=== PATIENT | female | born 1975 | race Caucasian/White ===

== ENCOUNTER 2019-11-30 19:00 | Inpatient (IN) | payer BC, OTHER ==
[2019-11-30] MEDS ORDERED: Loperamide HCl 2 MG CAP PO PRN (21:50)
[2019-11-30] MEDS ORDERED: Dextrose 5% in Water 1,000 ML IV PRN (21:59)
[2019-11-30] MEDS ORDERED: HumaLOG 300 UNITS/3 ML VIAL SC PRN (21:59)
[2019-11-30] MEDS ORDERED: Dextrose 50% Abboject 50 ML SYRINGE SLOW IVP PRN (21:59)
[2019-12-01] MEDS ORDERED: hydrALAZINE 25 MG TAB PO SCH (01:30)
[2019-12-01] MEDS: Atorvastatin Calcium 40 MG TAB PO SCH (09:13)
[2019-12-01] MEDS: Clopidogrel Bisulfate 75 MG TAB PO SCH (09:14)
[2019-12-01] MEDS: Lisinopril 20 MG TAB PO SCH (09:14)
[2019-12-01] MEDS: hydrALAZINE 25 MG TAB PO SCH ×3 (09:17→21:35)
[2019-12-01] MEDS: Cholecalciferol 1,000 UNITS (25 MCG) TAB PO SCH (09:17)
[2019-12-01] MEDS: Nystatin Powder 15 GM BOT TOP SCH ×2 (09:18→22:16)
[2019-12-01] MEDS: Furosemide 20 MG TAB PO SCH (09:19)
[2019-12-01] MEDS: HumaLOG 300 UNITS/3 ML VIAL SC PRN (18:23)
[2019-12-02] MEDS: Clopidogrel Bisulfate 75 MG TAB PO SCH (08:51)
[2019-12-02] MEDS: Furosemide 20 MG TAB PO SCH (08:51)
[2019-12-02] MEDS: Cholecalciferol 1,000 UNITS (25 MCG) TAB PO SCH (08:51)
[2019-12-02] MEDS: Atorvastatin Calcium 40 MG TAB PO SCH (08:51)
[2019-12-02] MEDS: Lisinopril 20 MG TAB PO SCH (08:52)
[2019-12-02] MEDS: Nystatin Powder 15 GM BOT TOP SCH ×3 (08:54→21:52)
[2019-12-02] MEDS: hydrALAZINE 25 MG TAB PO SCH ×3 (11:19→21:51)
[2019-12-02] MEDS ORDERED: Nystatin Powder 15 GM BOT TOP SCH ×2 (11:45)
[2019-12-02] MEDS ORDERED: Senokot S 8.6-50 MG TAB PO PRN (17:10)
--- NOTE | 2019-12-02 17:48 | HP ---
CHIEF COMPLAINT: Debilitation, generalized weakness. HISTORY OF PRESENT ILLNESS: The patient is a 44-year-old extremely pleasant white female with a very complicated medical history with chronic medical conditions, who had just spent about 3 weeks at [facility] in [place]. She was admitted on 11/13/2019 with significant CHF exacerbation/nephrotic syndrome with volume overload and anasarca. Her principal diagnosis was nephrotic syndrome, for which she had anasarca associated with disorder of the kidney including renal failure. She developed a hydropneumothorax. Apparently, she had a thoracentesis and approximately a L was diuresed and she became hypotensive requiring extended ICU stay. In addition, she had complications of hypertensive crisis and shock due to her hypotension and developed acute respiratory failure with hypoxia and hypercapnia. After her ICU stay, she was extremely debilitated and weak, had continued acute urinary retention, was unable to ambulate. She also has some skin breakdown requiring airflow mattress and due to her severe deconditioning, she was deemed appropriate for half-way and was transferred to [facility] on 11/30/2019 for physical therapy and occupational therapy and management of her chronic medical conditions. PAST MEDICAL HISTORY: Significant for, 1. Type 2 diabetes mellitus, poorly controlled, off insulin. 2. Status post CVA. The patient described it as a stroke from her diabetes. 3. Congestive heart failure. 4. Hypertension. 5. History of poor compliance with her recent hospitalization and leaving hospital AMA. 6. Hyperlipidemia. 7. Mental deficits secondary to her history of CVA. MEDICATIONS: Include, 1. Furosemide 20 mg daily. 2. Hydralazine 100 mg p.o. t.i.d. 3. Isosorbide mononitrate 60 mg daily. 4. Loperamide as needed for diarrhea. 5. Nystatin powder p.r.n. 6. Seroquel 25 mg p.o. b.i.d. 7. Atorvastatin 80 mg daily. 8. Plavix 75 mg daily. 9. Lisinopril 20 mg daily. Diet is a renal diabetic and heart healthy diet. SOCIAL HISTORY: The patient apparently lives with her and children in the [facility]. She is usually independent with all activities of daily living prior to her recent hospitalization. REVIEW OF SYSTEMS: During her hospitalization, the patient does report constipation followed by diarrhea. She also reports urinary retention issue for prior occurrence of a Napier catheter. The patient says her appetite has been poor during her hospitalization. She does report some sadness at times because she is not able to spend time with her family and her , but denies depression. The patient denies insomnia. She continues to have some shortness of breath, which has been improving during her hospitalization. The patient denies any fevers or chills. No emesis reported. The patient is unsure if she had any recent significant weight loss or weight gain. The patient denies rashes. The patient denies any significant pain of her joints. PHYSICAL EXAMINATION: GENERAL: Ill-appearing white female, appears older than stated age, in no obvious distress on 2 L of oxygen. VITAL SIGNS: O2 saturation was 92% on 4 L of oxygen, blood pressure was 148/68, respiratory rate was 16, pulse was 82. HEENT: Oropharynx, mucous membranes are moist. Extraocular movements are intact. Pupils are equal, round, and reactive to light and accommodation. NECK: Supple. No masses palpated. CHEST: Decreased breath sounds in the bases bilaterally. HEART: With a regular rate and rhythm. ABDOMEN: Soft, nontender, nondistended. No masses are palpated. EXTREMITIES: Showed pale extremities. No cyanosis, clubbing, or edema. ASSESSMENT AND PLAN: 1. Deconditioning and debilitation. The patient is currently nonambulatory. She is extremely weak. We will order physical therapy and occupational therapy. 2. Anasarca secondary to nephrotic syndrome. The patient will continue on her Lasix 20 mg daily. She does have some dependent edema on her buttocks. Hopefully, this will improve. We will continue airflow mattress to help prevent any skin breakdown. 3. Diabetes mellitus. The patient will be placed on Accu-Cheks q.a.c. and at bedtime. Her blood sugars look good. May discontinue and do fasting blood sugars. 4. Chronic renal disease, stage 4 due to diabetes. We will continue to follow this. 5. Acute urinary retention. We will try to consider a PureWick. If she is able to start urinating due to her deconditioning, we will attempt to discontinue the Napier catheter. 6. Hypertension, presently controlled. Continue patient on her current medications. 7. Code status. The patient wishes to be full code. 8. Disposition: The patient will have a long stay likely in skilled for several weeks due to her severe deconditioning and inability to ambulate. Her goal at discharge is to be discharged to home. Expected hospitalization will be at least 3 to 4 weeks. 9. DVT prophylaxis. The patient is at high risk for DVT. I believe she may have been placed on a blood thinner during her hospitalization. We will evaluate that. If not on a blood thinner, may consider her back on Lovenox daily. Job ID: [id number]
[2019-12-02 18:05] LABS: Anion Gap 16 mmol/L (10-20); BUN (Urea Nitrogen) 59 mg/dL (7.0-18.7); Calc. Creatinine Clearance 21 mL/min (70-130); Calcium 8.4 mg/dL (7.8-10.44); Carbon Dioxide 27 mmol/L (22-29); Chloride 107 mmol/L (98-107); Estimated GFR-MDRD 16; Glucose 126 mg/dL (70-105); Potassium 5.4 mmol/L (3.5-5.1); Sodium 145 mmol/L (136-145)
[2019-12-02 18:08] LABS: #Basophils 0.1 thou/uL (0.0-0.2); #Eosinphils 0.2 thou/uL (0.0-0.7); #Lymphocytes 1.4 thou/uL (1.20-3.40); #Monocytes 0.3 thou/uL (0.11-0.59); #Neutrophils 3.6 thou/uL (1.40-6.50); %Basophils 0.9 % (0.0-1.0); %Eosinophils 2.9 % (0.0-10.0); %Lymphocytes 25.1 % (21.0-51.0); %Monocytes 5.5 % (0.0-10.0); %Neutrophils 65.6 % (42.0-75.0); Anisocytosis SLIGHT = 6-15 cells (100X) (0-5/hpf); Elliptocytes SLIGHT = 2-5 cells (100X) (0-1/hpf); Hemoglobin 9.1 g/dL (12.0-16.0); MDiff Complete? YES; Mean Corpuscular HGB CONC 28.8 g/dL (32.0-36.0); Mean Corpuscular Hemoglobin 23.9 pg (27.0-31.0); Mean Platelet Volume 6.2 fL (7.4-10.4); Platelet Count 248 thou/uL (130-400); Poikilocytosis SLIGHT = 6-15 cells (100X) (0-5/hpf); RBC Distribution Width 15.7 % (11.5-14.5); Red Blood Cell (RBC) Count 3.81 mill/uL (4.20-5.40); Tear Drops SLIGHT = 2-5 cells (100X) (0-1/hpf); White Blood Cell (WBC) Count 5.5 thou/uL (4.8-10.8)
[2019-12-02] MEDS: Famotidine 20 MG TAB PO SCH (21:50)
[2019-12-03] MEDS: hydrALAZINE 25 MG TAB PO SCH ×3 (08:12→21:26)
[2019-12-03] MEDS: Enoxaparin Sodium 30 MG/0.3 ML SYRINGE SC SCH (08:12)
[2019-12-03] MEDS: Atorvastatin Calcium 40 MG TAB PO SCH ×2 (08:12→08:13)
[2019-12-03] MEDS: Cholecalciferol 1,000 UNITS (25 MCG) TAB PO SCH (08:13)
[2019-12-03] MEDS: Clopidogrel Bisulfate 75 MG TAB PO SCH (08:13)
[2019-12-03] MEDS: Furosemide 20 MG TAB PO SCH (08:14)
[2019-12-03] MEDS: Lisinopril 20 MG TAB PO SCH (08:14)
[2019-12-03] MEDS: Nystatin Powder 15 GM BOT TOP SCH ×2 (08:15→21:00)
[2019-12-03] MEDS: Famotidine 20 MG TAB PO SCH ×2 (08:16→21:26)
[2019-12-03] MEDS: HumaLOG 300 UNITS/3 ML VIAL SC PRN (12:26)
[2019-12-03 12:29] LABS: SARS-CoV-2 MS2 Positive; SARS-CoV-2 N Gene Negative; SARS-CoV-2 S Gene Negative; SARS-CoV-2 by NAA Not Detected (NotDetected); SARS-CoV-2 orf1ab Negative
[2019-12-03] MEDS: Acetaminophen 325 MG TAB PO PRN (18:31)
[2019-12-04 05:51] LABS: Hemoglobin 8.8 g/dL (12.0-16.0); Platelet Count 221 thou/uL (130-400)
[2019-12-04] MEDS: hydrALAZINE 25 MG TAB PO SCH ×3 (08:41→20:06)
[2019-12-04] MEDS: Famotidine 20 MG TAB PO SCH (08:41)
[2019-12-04] MEDS: Cholecalciferol 1,000 UNITS (25 MCG) TAB PO SCH (08:41)
[2019-12-04] MEDS: Lisinopril 20 MG TAB PO SCH (08:42)
[2019-12-04] MEDS: Atorvastatin Calcium 40 MG TAB PO SCH (08:43)
[2019-12-04] MEDS: Furosemide 20 MG TAB PO SCH (08:43)
[2019-12-04] MEDS: Clopidogrel Bisulfate 75 MG TAB PO SCH (08:44)
[2019-12-04] MEDS: Enoxaparin Sodium 30 MG/0.3 ML SYRINGE SC SCH (08:44)
[2019-12-04] MEDS: Nystatin Powder 15 GM BOT TOP SCH ×2 (08:47→20:07)
[2019-12-05] MEDS: Acetaminophen 325 MG TAB PO PRN (04:52)
[2019-12-05 05:19] LABS: ALT (SGPT) 10 U/L (8-55); AST (SGOT) 8 U/L (5-34); Albumin 2.9 g/dL (3.5-5.0); Alkaline Phosphatase 151 U/L (40-110); Anion Gap 15 mmol/L (10-20); BUN (Urea Nitrogen) 56 mg/dL (7.0-18.7); Bilirubin, Total Less than 0.2 mg/dL (0.2-1.2); Calc. Creatinine Clearance 24 mL/min (70-130); Calcium 8.6 mg/dL (7.8-10.44); Carbon Dioxide 25 mmol/L (22-29); Chloride 110 mmol/L (98-107); Estimated GFR-MDRD 18; Globulin 2.5 g/dL (2.4-3.5); Glucose 146 mg/dL (70-105); Potassium 5.2 mmol/L (3.5-5.1); Protein, Total 5.4 g/dL (6.0-8.3); Sodium 145 mmol/L (136-145)
[2019-12-05 05:29] LABS: #Basophils 0.1 thou/uL (0.0-0.2); #Eosinphils 0.2 thou/uL (0.0-0.7); #Lymphocytes 1.2 thou/uL (1.20-3.40); #Monocytes 0.3 thou/uL (0.11-0.59); #Neutrophils 2.9 thou/uL (1.40-6.50); %Basophils 2.1 % (0.0-1.0); %Eosinophils 3.5 % (0.0-10.0); %Lymphocytes 25.1 % (21.0-51.0); %Monocytes 6.5 % (0.0-10.0); %Neutrophils 62.9 % (42.0-75.0); Hemoglobin 8.7 g/dL (12.0-16.0); Mean Corpuscular HGB CONC 29.5 g/dL (32.0-36.0); Mean Corpuscular Hemoglobin 24.2 pg (27.0-31.0); Mean Corpuscular Volume 81.9 fL (78.0-98.0); Mean Platelet Volume 7.5 fL (7.4-10.4); Platelet Count 230 thou/uL (130-400); RBC Distribution Width 16.1 % (11.5-14.5); White Blood Cell (WBC) Count 4.6 thou/uL (4.8-10.8)
[2019-12-05 05:43] LABS: Anisocytosis SLIGHT = 6-15 cells (100X) (0-5/hpf); Hypochromia SLIGHT = 6-15 cells (100X) (0-5/hpf); Ovalocytes SLIGHT = 2-5 cells (100X) (0-1/hpf); Platelet Morphology Comment Appears Adequate
[2019-12-05] MEDS: Enoxaparin Sodium 30 MG/0.3 ML SYRINGE SC SCH (09:01)
[2019-12-05] MEDS: hydrALAZINE 25 MG TAB PO SCH ×3 (09:02→21:34)
[2019-12-05] MEDS: Furosemide 20 MG TAB PO SCH (09:02)
[2019-12-05] MEDS: Famotidine 20 MG TAB PO SCH (09:03)
[2019-12-05] MEDS: Cholecalciferol 1,000 UNITS (25 MCG) TAB PO SCH (09:04)
[2019-12-05] MEDS: Nystatin Powder 15 GM BOT TOP SCH ×2 (09:06→21:38)
[2019-12-05] MEDS: Clopidogrel Bisulfate 75 MG TAB PO SCH (09:06)
[2019-12-05] MEDS: Lisinopril 20 MG TAB PO SCH (09:07)
[2019-12-05] MEDS: HumaLOG 300 UNITS/3 ML VIAL SC PRN ×2 (12:08→17:02)
[2019-12-06 05:40] LABS: Hemoglobin 8.5 g/dL (12.0-16.0); Platelet Count 234 thou/uL (130-400)
[2019-12-06] MEDS: Enoxaparin Sodium 30 MG/0.3 ML SYRINGE SC SCH (08:41)
[2019-12-06] MEDS: Atorvastatin Calcium 40 MG TAB PO SCH (08:42)
[2019-12-06] MEDS: Furosemide 20 MG TAB PO SCH (08:42)
[2019-12-06] MEDS: Cholecalciferol 1,000 UNITS (25 MCG) TAB PO SCH (08:42)
[2019-12-06] MEDS: Famotidine 20 MG TAB PO SCH (08:42)
[2019-12-06] MEDS: hydrALAZINE 25 MG TAB PO SCH ×3 (08:43→20:38)
[2019-12-06] MEDS: Clopidogrel Bisulfate 75 MG TAB PO SCH (08:43)
[2019-12-06] MEDS: Lisinopril 20 MG TAB PO SCH (08:43)
[2019-12-06] MEDS: Nystatin Powder 15 GM BOT TOP SCH ×2 (08:44→23:43)
[2019-12-06] MEDS: Acetaminophen 325 MG TAB PO PRN (23:36)
[2019-12-07] MEDS: Lisinopril 20 MG TAB PO SCH (04:27)
[2019-12-07] MEDS: hydrALAZINE 25 MG TAB PO SCH ×3 (04:28→21:03)
[2019-12-07] MEDS: Atorvastatin Calcium 40 MG TAB PO SCH (08:58)
[2019-12-07] MEDS: Famotidine 20 MG TAB PO SCH (08:58)
[2019-12-07] MEDS: Furosemide 20 MG TAB PO SCH (08:58)
[2019-12-07] MEDS: Clopidogrel Bisulfate 75 MG TAB PO SCH (08:58)
[2019-12-07] MEDS: Cholecalciferol 1,000 UNITS (25 MCG) TAB PO SCH (08:59)
[2019-12-07] MEDS: Enoxaparin Sodium 30 MG/0.3 ML SYRINGE SC SCH (08:59)
[2019-12-07] MEDS: Nystatin Powder 15 GM BOT TOP SCH ×2 (09:00→21:03)
[2019-12-07] MEDS: HumaLOG 300 UNITS/3 ML VIAL SC PRN (17:48)
[2019-12-07] MEDS: Acetaminophen 325 MG TAB PO PRN (19:38)
[2019-12-08 05:21] LABS: Hemoglobin 8.8 g/dL (12.0-16.0); Platelet Count 224 thou/uL (130-400)
[2019-12-08] MEDS ORDERED: Milk Of Magnesia 30 ML UDCUP PO PRN (09:11)
[2019-12-08] MEDS ORDERED: Bisacodyl 10 MG SUPP PR PRN (09:12)
[2019-12-08 09:23] LABS: Anion Gap 16 mmol/L (10-20); BUN (Urea Nitrogen) 57 mg/dL (7.0-18.7); Calc. Creatinine Clearance 25 mL/min (70-130); Calcium 8.9 mg/dL (7.8-10.44); Carbon Dioxide 25 mmol/L (22-29); Chloride 109 mmol/L (98-107); Estimated GFR-MDRD 18; Glucose 167 mg/dL (70-105); Potassium 5.2 mmol/L (3.5-5.1); Sodium 145 mmol/L (136-145)
[2019-12-08] MEDS: Enoxaparin Sodium 30 MG/0.3 ML SYRINGE SC SCH (09:35)
[2019-12-08] MEDS: Famotidine 20 MG TAB PO SCH (09:35)
[2019-12-08] MEDS: Cholecalciferol 1,000 UNITS (25 MCG) TAB PO SCH (09:36)
[2019-12-08] MEDS: hydrALAZINE 25 MG TAB PO SCH ×3 (09:36→21:06)
[2019-12-08] MEDS: Lisinopril 20 MG TAB PO SCH (09:37)
[2019-12-08] MEDS: Atorvastatin Calcium 40 MG TAB PO SCH (09:38)
[2019-12-08] MEDS: Furosemide 20 MG TAB PO SCH (09:38)
[2019-12-08] MEDS: Clopidogrel Bisulfate 75 MG TAB PO SCH (09:38)
[2019-12-08] MEDS: Nystatin Powder 15 GM BOT TOP SCH ×2 (10:00→21:08)
[2019-12-08] MEDS: HumaLOG 300 UNITS/3 ML VIAL SC PRN (13:19)
[2019-12-08] MEDS ORDERED: Furosemide 20 MG TAB PO SCH (16:00)
[2019-12-08] MEDS: Carvedilol 3.125 MG TAB PO SCH (16:05)
[2019-12-09] MEDS: Enoxaparin Sodium 30 MG/0.3 ML SYRINGE SC SCH (09:00)
[2019-12-09] MEDS ORDERED: Furosemide 40 MG TAB PO SCH (09:00)
[2019-12-09] MEDS: Clopidogrel Bisulfate 75 MG TAB PO SCH (09:01)
[2019-12-09] MEDS: Carvedilol 3.125 MG TAB PO SCH ×2 (09:01→16:17)
[2019-12-09] MEDS: Lisinopril 20 MG TAB PO SCH (09:01)
[2019-12-09] MEDS: Cholecalciferol 1,000 UNITS (25 MCG) TAB PO SCH (09:01)
[2019-12-09] MEDS: Famotidine 20 MG TAB PO SCH (09:02)
[2019-12-09] MEDS: hydrALAZINE 25 MG TAB PO SCH ×3 (09:02→20:59)
[2019-12-09] MEDS: Atorvastatin Calcium 40 MG TAB PO SCH (09:02)
[2019-12-09] MEDS: Nystatin Powder 15 GM BOT TOP SCH ×2 (09:03→21:03)
[2019-12-09] MEDS: HumaLOG 300 UNITS/3 ML VIAL SC PRN (12:46)
[2019-12-10 05:28] LABS: Anion Gap 13 mmol/L (10-20); BUN (Urea Nitrogen) 55 mg/dL (7.0-18.7); Calc. Creatinine Clearance 26 mL/min (70-130); Calcium 8.7 mg/dL (7.8-10.44); Carbon Dioxide 27 mmol/L (22-29); Chloride 109 mmol/L (98-107); Estimated GFR-MDRD 18; Glucose 143 mg/dL (70-105); Potassium 5.1 mmol/L (3.5-5.1); Sodium 144 mmol/L (136-145)
[2019-12-10 05:30] LABS: Hemoglobin 9.1 g/dL (12.0-16.0); Platelet Count 233 thou/uL (130-400)
--- NOTE | 2019-12-10 07:14 | RAD ---
PORTABLE CHEST: Date: 12/10/2019 An AP portable film at 0632 hours is compared with the 07/25/2018 study done at [facility]. Diffuse pulmonary edema and bilateral pleural effusions are present. The heart does not seem necessar bertrand enlarged. The lung apices are relatively clear. IMPRESSION: Diffuse pulmonary edema and moderate sized pleural effusions. POS: HOME
[2019-12-10] MEDS: Enoxaparin Sodium 30 MG/0.3 ML SYRINGE SC SCH (08:44)
[2019-12-10] MEDS: Cholecalciferol 1,000 UNITS (25 MCG) TAB PO SCH (08:44)
[2019-12-10] MEDS: Famotidine 20 MG TAB PO SCH (08:45)
[2019-12-10] MEDS: Atorvastatin Calcium 40 MG TAB PO SCH (08:46)
[2019-12-10] MEDS: Clopidogrel Bisulfate 75 MG TAB PO SCH (08:46)
[2019-12-10] MEDS: Nystatin Powder 15 GM BOT TOP SCH ×2 (08:46→20:48)
[2019-12-10] MEDS: Furosemide 20 MG TAB PO SCH (09:18)
[2019-12-10] MEDS: Carvedilol 3.125 MG TAB PO SCH ×2 (09:19→16:25)
[2019-12-10] MEDS: Lisinopril 20 MG TAB PO SCH (09:19)
[2019-12-10] MEDS: hydrALAZINE 25 MG TAB PO SCH ×3 (09:19→20:31)
[2019-12-10 10:10] LABS: Bilirubin Negative (Negative); Blood, Urine Trace (Negative); Clarity Cloudy (Clear); Glucose, Urine (Dipstick) Negative (Negative); Ketone, Urine Negative (Negative); Leukocyte Moderate (Negative); Nitrite Negative (Negative); Protein, Urine (Dipstick) > or equal to 300 mg/dL (Neg-Trace); Urobilinogen 0.2 mg/dL (Less than 2); pH, Urine 5.5 (5.0-9.0)
[2019-12-10 10:20] LABS: Bacteria/HPF 4+ HPF (None Seen); Transitional Epithelial 0-3 HPF (None Seen); WBC/HPF Greater Than 50 HPF (0-3)
[2019-12-10] MEDS: HumaLOG 300 UNITS/3 ML VIAL SC PRN ×2 (13:08→17:48)
[2019-12-10] MEDS ORDERED: Furosemide 20 MG TAB PO SCH (19:45)
[2019-12-10 20:29] LABS: CKMB 2.6 ng/mL (0-6.6)
[2019-12-11 05:38] LABS: ALT (SGPT) 16 U/L (8-55); AST (SGOT) 10 U/L (5-34); Albumin 2.8 g/dL (3.5-5.0); Alkaline Phosphatase 170 U/L (40-110); Anion Gap 12 mmol/L (10-20); BUN (Urea Nitrogen) 57 mg/dL (7.0-18.7); Bilirubin, Total Less than 0.2 mg/dL (0.2-1.2); Calc. Creatinine Clearance 25 mL/min (70-130); Calcium 8.6 mg/dL (7.8-10.44); Carbon Dioxide 29 mmol/L (22-29); Chloride 109 mmol/L (98-107); Estimated GFR-MDRD 17; Globulin 2.6 g/dL (2.4-3.5); Glucose 145 mg/dL (70-105); Protein, Total 5.4 g/dL (6.0-8.3); Sodium 145 mmol/L (136-145)
[2019-12-11 05:39] LABS: CKMB 2.5 ng/mL (0-6.6); Troponin I 0.096 ng/mL (< 0.028)
[2019-12-11] MEDS: Furosemide 20 MG TAB PO SCH (08:44)
[2019-12-11] MEDS: Lisinopril 20 MG TAB PO SCH (08:44)
[2019-12-11] MEDS: Famotidine 20 MG TAB PO SCH (08:44)
[2019-12-11] MEDS: hydrALAZINE 25 MG TAB PO SCH ×3 (08:45→20:30)
[2019-12-11] MEDS: Clopidogrel Bisulfate 75 MG TAB PO SCH (08:45)
[2019-12-11] MEDS: Cholecalciferol 1,000 UNITS (25 MCG) TAB PO SCH (08:46)
[2019-12-11] MEDS: Atorvastatin Calcium 40 MG TAB PO SCH (08:47)
[2019-12-11] MEDS: Carvedilol 3.125 MG TAB PO SCH ×2 (08:48→16:35)
[2019-12-11] MEDS: Enoxaparin Sodium 30 MG/0.3 ML SYRINGE SC SCH (08:48)
[2019-12-11] MEDS: Nystatin Powder 15 GM BOT TOP SCH ×2 (09:01→20:31)
[2019-12-11] MEDS: HumaLOG 300 UNITS/3 ML VIAL SC PRN (12:50)
[2019-12-11] MEDS ORDERED: Furosemide 20 MG TAB PO SCH (15:00)
[2019-12-12 05:27] LABS: Hemoglobin 8.8 g/dL (12.0-16.0); Platelet Count 216 thou/uL (130-400)
[2019-12-12] MEDS: Enoxaparin Sodium 30 MG/0.3 ML SYRINGE SC SCH (08:36)
[2019-12-12] MEDS: hydrALAZINE 25 MG TAB PO SCH ×3 (08:37→21:11)
[2019-12-12] MEDS: Famotidine 20 MG TAB PO SCH (08:38)
[2019-12-12] MEDS: Atorvastatin Calcium 40 MG TAB PO SCH (08:39)
[2019-12-12] MEDS: Furosemide 40 MG TAB PO SCH (08:39)
[2019-12-12] MEDS: Cholecalciferol 1,000 UNITS (25 MCG) TAB PO SCH (08:39)
[2019-12-12] MEDS: Clopidogrel Bisulfate 75 MG TAB PO SCH (08:39)
[2019-12-12] MEDS: Carvedilol 3.125 MG TAB PO SCH ×2 (08:40→17:34)
[2019-12-12] MEDS: Lisinopril 20 MG TAB PO SCH (08:41)
[2019-12-12] MEDS: Nystatin Powder 15 GM BOT TOP SCH ×2 (08:44→21:12)
[2019-12-13] MEDS: Enoxaparin Sodium 30 MG/0.3 ML SYRINGE SC SCH (09:21)
[2019-12-13] MEDS: Atorvastatin Calcium 40 MG TAB PO SCH (09:21)
[2019-12-13] MEDS: Lisinopril 20 MG TAB PO SCH (09:22)
[2019-12-13] MEDS: Clopidogrel Bisulfate 75 MG TAB PO SCH (09:22)
[2019-12-13] MEDS: Furosemide 40 MG TAB PO SCH (09:23)
[2019-12-13] MEDS: Carvedilol 3.125 MG TAB PO SCH ×2 (09:23→16:45)
[2019-12-13] MEDS: Famotidine 20 MG TAB PO SCH (09:23)
[2019-12-13] MEDS: hydrALAZINE 25 MG TAB PO SCH ×3 (09:23→21:46)
[2019-12-13] MEDS: Cholecalciferol 1,000 UNITS (25 MCG) TAB PO SCH (09:23)
[2019-12-13] MEDS: Nystatin Powder 15 GM BOT TOP SCH ×2 (09:25→21:47)
[2019-12-13] MEDS: Sulfameth/Trimethoprim DS 800-160mg TAB PO SCH (21:47)
[2019-12-14 05:09] LABS: Hemoglobin 8.4 g/dL (12.0-16.0); Platelet Count 212 thou/uL (130-400)
[2019-12-14] MEDS: Enoxaparin Sodium 30 MG/0.3 ML SYRINGE SC SCH (08:42)
[2019-12-14] MEDS: Atorvastatin Calcium 40 MG TAB PO SCH (08:45)
[2019-12-14] MEDS: Cholecalciferol 1,000 UNITS (25 MCG) TAB PO SCH (08:46)
[2019-12-14] MEDS: Sulfameth/Trimethoprim DS 800-160mg TAB PO SCH ×2 (08:46→20:28)
[2019-12-14] MEDS: Famotidine 20 MG TAB PO SCH (08:47)
[2019-12-14] MEDS: Carvedilol 3.125 MG TAB PO SCH ×2 (08:47→15:27)
[2019-12-14] MEDS: Furosemide 40 MG TAB PO SCH (08:47)
[2019-12-14] MEDS: Lisinopril 20 MG TAB PO SCH (08:47)
[2019-12-14] MEDS: hydrALAZINE 25 MG TAB PO SCH ×3 (08:48→20:28)
[2019-12-14] MEDS: Clopidogrel Bisulfate 75 MG TAB PO SCH (08:48)
[2019-12-14] MEDS: Nystatin Powder 15 GM BOT TOP SCH ×2 (08:49→20:30)
[2019-12-15] MEDS: Nystatin Powder 15 GM BOT TOP SCH ×2 (09:00→21:07)
[2019-12-15] MEDS: Carvedilol 3.125 MG TAB PO SCH ×2 (09:24→17:18)
[2019-12-15] MEDS: hydrALAZINE 25 MG TAB PO SCH ×3 (09:24→21:07)
[2019-12-15] MEDS: Lisinopril 20 MG TAB PO SCH (09:25)
[2019-12-15] MEDS: Furosemide 40 MG TAB PO SCH (09:31)
[2019-12-15] MEDS: Enoxaparin Sodium 30 MG/0.3 ML SYRINGE SC SCH (09:31)
[2019-12-15] MEDS: Atorvastatin Calcium 40 MG TAB PO SCH (13:13)
[2019-12-15] MEDS: Famotidine 20 MG TAB PO SCH (13:13)
[2019-12-15] MEDS: Sulfameth/Trimethoprim DS 800-160mg TAB PO SCH ×2 (13:13→21:07)
[2019-12-15] MEDS: Clopidogrel Bisulfate 75 MG TAB PO SCH (13:13)
[2019-12-15] MEDS: Cholecalciferol 1,000 UNITS (25 MCG) TAB PO SCH (13:14)
[2019-12-16] MEDS: Enoxaparin Sodium 30 MG/0.3 ML SYRINGE SC SCH (08:11)
[2019-12-16] MEDS: hydrALAZINE 25 MG TAB PO SCH ×3 (08:11→20:36)
[2019-12-16] MEDS: Atorvastatin Calcium 40 MG TAB PO SCH (08:12)
[2019-12-16] MEDS: Sulfameth/Trimethoprim DS 800-160mg TAB PO SCH ×2 (08:12→20:37)
[2019-12-16] MEDS: Clopidogrel Bisulfate 75 MG TAB PO SCH (08:12)
[2019-12-16] MEDS: Furosemide 40 MG TAB PO SCH (08:12)
[2019-12-16] MEDS: Carvedilol 3.125 MG TAB PO SCH ×2 (08:13→16:00)
[2019-12-16] MEDS: Lisinopril 20 MG TAB PO SCH (08:13)
[2019-12-16] MEDS: Cholecalciferol 1,000 UNITS (25 MCG) TAB PO SCH (08:13)
[2019-12-16] MEDS: Famotidine 20 MG TAB PO SCH (08:13)
[2019-12-16] MEDS: Nystatin Powder 15 GM BOT TOP SCH ×2 (08:15→20:40)
[2019-12-16 08:27] LABS: Hemoglobin 8.4 g/dL (12.0-16.0); Platelet Count 195 thou/uL (130-400)
[2019-12-16] MEDS: Ondansetron ODT 4 MG TAB PO PRN (14:40)
[2019-12-17] MEDS: Ondansetron ODT 4 MG TAB PO PRN (05:15)
[2019-12-17] MEDS: Enoxaparin Sodium 30 MG/0.3 ML SYRINGE SC SCH (08:48)
[2019-12-17] MEDS: Sulfameth/Trimethoprim DS 800-160mg TAB PO SCH ×2 (08:49→20:33)
[2019-12-17] MEDS: Furosemide 40 MG TAB PO SCH (08:49)
[2019-12-17] MEDS: Famotidine 20 MG TAB PO SCH (08:50)
[2019-12-17] MEDS: hydrALAZINE 25 MG TAB PO SCH ×3 (08:50→20:32)
[2019-12-17] MEDS: Clopidogrel Bisulfate 75 MG TAB PO SCH (08:50)
[2019-12-17] MEDS: Lisinopril 20 MG TAB PO SCH (08:50)
[2019-12-17] MEDS: Atorvastatin Calcium 40 MG TAB PO SCH (08:51)
[2019-12-17] MEDS: Cholecalciferol 1,000 UNITS (25 MCG) TAB PO SCH (08:51)
[2019-12-17] MEDS: Nystatin Powder 15 GM BOT TOP SCH ×2 (08:52→20:33)
[2019-12-17] MEDS: Carvedilol 3.125 MG TAB PO SCH ×2 (08:53→16:24)
[2019-12-18 04:49] LABS: Hemoglobin 8.1 g/dL (12.0-16.0); Platelet Count 186 thou/uL (130-400)
[2019-12-18] MEDS: Enoxaparin Sodium 30 MG/0.3 ML SYRINGE SC SCH (08:36)
[2019-12-18] MEDS: hydrALAZINE 25 MG TAB PO SCH ×3 (08:37→21:31)
[2019-12-18] MEDS: Famotidine 20 MG TAB PO SCH (08:39)
[2019-12-18] MEDS: Cholecalciferol 1,000 UNITS (25 MCG) TAB PO SCH (08:40)
[2019-12-18] MEDS: Atorvastatin Calcium 40 MG TAB PO SCH (08:40)
[2019-12-18] MEDS: Clopidogrel Bisulfate 75 MG TAB PO SCH (08:40)
[2019-12-18] MEDS: Sulfameth/Trimethoprim DS 800-160mg TAB PO SCH ×2 (08:41→21:29)
[2019-12-18] MEDS: Furosemide 40 MG TAB PO SCH (08:42)
[2019-12-18] MEDS: Lisinopril 20 MG TAB PO SCH (08:43)
[2019-12-18] MEDS: Carvedilol 3.125 MG TAB PO SCH ×2 (08:43→16:42)
[2019-12-18] MEDS: Nystatin Powder 15 GM BOT TOP SCH ×2 (08:44→21:29)
[2019-12-18] MEDS: Ondansetron ODT 4 MG TAB PO PRN (10:20)
--- NOTE | 2019-12-18 19:16 | RAD ---
PORTABLE CHEST: Date: 12/18/2019 An AP portable film at 1152 hours is compared with the 12/10/2019 study. Once again, there are bilateral pleural effusions and diffuse pulmonary edema. Underlying infection i s possible, though cardiac causes could cause the same. Overall, the amount of pulmonary edema seems marginally improved over the interval. IMPRESSION: Similar to 12/10/2019, but very slight decrease in edema. POS: HOME
[2019-12-19] MEDS: Enoxaparin Sodium 30 MG/0.3 ML SYRINGE SC SCH (08:32)
[2019-12-19] MEDS: Famotidine 20 MG TAB PO SCH (08:33)
[2019-12-19] MEDS: hydrALAZINE 25 MG TAB PO SCH ×3 (08:33→21:19)
[2019-12-19] MEDS: Atorvastatin Calcium 40 MG TAB PO SCH (08:34)
[2019-12-19] MEDS: Sulfameth/Trimethoprim DS 800-160mg TAB PO SCH ×2 (08:34→21:18)
[2019-12-19] MEDS: Lisinopril 20 MG TAB PO SCH (08:35)
[2019-12-19] MEDS: Carvedilol 3.125 MG TAB PO SCH ×2 (08:35→16:32)
[2019-12-19] MEDS: Clopidogrel Bisulfate 75 MG TAB PO SCH (08:35)
[2019-12-19] MEDS: Cholecalciferol 1,000 UNITS (25 MCG) TAB PO SCH (08:35)
[2019-12-19] MEDS: Nystatin Powder 15 GM BOT TOP SCH ×2 (08:36→21:24)
[2019-12-19] MEDS: Furosemide 40 MG TAB PO SCH (08:36)
[2019-12-20 05:37] LABS: Hemoglobin 8.2 g/dL (12.0-16.0); Platelet Count 186 thou/uL (130-400)
[2019-12-20] MEDS: Enoxaparin Sodium 30 MG/0.3 ML SYRINGE SC SCH (11:48)
[2019-12-20] MEDS: Atorvastatin Calcium 40 MG TAB PO SCH (11:49)
[2019-12-20] MEDS: Cholecalciferol 1,000 UNITS (25 MCG) TAB PO SCH (11:49)
[2019-12-20] MEDS: Sulfameth/Trimethoprim DS 800-160mg TAB PO SCH (11:50)
[2019-12-20] MEDS: Famotidine 20 MG TAB PO SCH (11:51)
[2019-12-20] MEDS: Carvedilol 3.125 MG TAB PO SCH ×2 (11:51→17:21)
[2019-12-20] MEDS: hydrALAZINE 25 MG TAB PO SCH ×3 (11:51→20:21)
[2019-12-20] MEDS: Lisinopril 20 MG TAB PO SCH (11:52)
[2019-12-20] MEDS: Furosemide 40 MG TAB PO SCH (11:52)
[2019-12-20] MEDS: Clopidogrel Bisulfate 75 MG TAB PO SCH (11:52)
[2019-12-20] MEDS: Nystatin Powder 15 GM BOT TOP SCH ×2 (11:53→20:21)
[2019-12-20] MEDS: Saccharomyces boulardii 250 MG CAP PO SCH (20:21)
[2019-12-21] MEDS: Enoxaparin Sodium 30 MG/0.3 ML SYRINGE SC SCH (09:11)
[2019-12-21] MEDS: Cholecalciferol 1,000 UNITS (25 MCG) TAB PO SCH (09:11)
[2019-12-21] MEDS: Famotidine 20 MG TAB PO SCH (09:12)
[2019-12-21] MEDS: Atorvastatin Calcium 40 MG TAB PO SCH (09:12)
[2019-12-21] MEDS: hydrALAZINE 25 MG TAB PO SCH ×3 (09:12→20:42)
[2019-12-21] MEDS: Carvedilol 3.125 MG TAB PO SCH ×2 (09:14→18:11)
[2019-12-21] MEDS: Lisinopril 20 MG TAB PO SCH (09:14)
[2019-12-21] MEDS: Saccharomyces boulardii 250 MG CAP PO SCH ×2 (09:14→20:42)
[2019-12-21] MEDS: Furosemide 40 MG TAB PO SCH (09:14)
[2019-12-21] MEDS: Clopidogrel Bisulfate 75 MG TAB PO SCH (09:14)
[2019-12-21] MEDS: Nystatin Powder 15 GM BOT TOP SCH ×2 (09:15→20:42)
[2019-12-22 05:32] LABS: Hemoglobin 8.4 g/dL (12.0-16.0); Platelet Count 196 thou/uL (130-400)
[2019-12-22] MEDS: Cholecalciferol 1,000 UNITS (25 MCG) TAB PO SCH (09:29)
[2019-12-22] MEDS: Atorvastatin Calcium 40 MG TAB PO SCH (09:29)
[2019-12-22] MEDS: Clopidogrel Bisulfate 75 MG TAB PO SCH (09:30)
[2019-12-22] MEDS: Lisinopril 20 MG TAB PO SCH (09:30)
[2019-12-22] MEDS: Furosemide 40 MG TAB PO SCH (09:30)
[2019-12-22] MEDS: Carvedilol 3.125 MG TAB PO SCH ×2 (09:30→17:16)
[2019-12-22] MEDS: Saccharomyces boulardii 250 MG CAP PO SCH ×2 (09:30→20:29)
[2019-12-22] MEDS: Famotidine 20 MG TAB PO SCH (09:31)
[2019-12-22] MEDS: hydrALAZINE 25 MG TAB PO SCH ×3 (09:31→20:29)
[2019-12-22] MEDS: Enoxaparin Sodium 30 MG/0.3 ML SYRINGE SC SCH (09:31)
[2019-12-22] MEDS: Nystatin Powder 15 GM BOT TOP SCH ×2 (09:32→20:29)
[2019-12-23] MEDS: Atorvastatin Calcium 40 MG TAB PO SCH (09:20)
[2019-12-23] MEDS: Cholecalciferol 1,000 UNITS (25 MCG) TAB PO SCH (09:20)
[2019-12-23] MEDS: Furosemide 40 MG TAB PO SCH (09:21)
[2019-12-23] MEDS: Carvedilol 3.125 MG TAB PO SCH ×2 (09:21→17:05)
[2019-12-23] MEDS: Famotidine 20 MG TAB PO SCH (09:21)
[2019-12-23] MEDS: Clopidogrel Bisulfate 75 MG TAB PO SCH (09:21)
[2019-12-23] MEDS: Saccharomyces boulardii 250 MG CAP PO SCH ×2 (09:21→20:40)
[2019-12-23] MEDS: Enoxaparin Sodium 30 MG/0.3 ML SYRINGE SC SCH (09:22)
[2019-12-23] MEDS: Lisinopril 20 MG TAB PO SCH (09:23)
[2019-12-23] MEDS: hydrALAZINE 25 MG TAB PO SCH ×3 (09:23→20:40)
[2019-12-23] MEDS: Nystatin Powder 15 GM BOT TOP SCH ×2 (09:23→20:40)
[2019-12-24 05:33] LABS: Hemoglobin 8.4 g/dL (12.0-16.0); Platelet Count 181 thou/uL (130-400)
[2019-12-24] MEDS: Enoxaparin Sodium 30 MG/0.3 ML SYRINGE SC SCH (08:49)
[2019-12-24] MEDS: hydrALAZINE 25 MG TAB PO SCH ×3 (08:50→21:02)
[2019-12-24] MEDS: Atorvastatin Calcium 40 MG TAB PO SCH (08:51)
[2019-12-24] MEDS: Clopidogrel Bisulfate 75 MG TAB PO SCH (08:51)
[2019-12-24] MEDS: Cholecalciferol 1,000 UNITS (25 MCG) TAB PO SCH (08:52)
[2019-12-24] MEDS: Saccharomyces boulardii 250 MG CAP PO SCH ×2 (08:52→21:02)
[2019-12-24] MEDS: Lisinopril 20 MG TAB PO SCH (08:53)
[2019-12-24] MEDS: Carvedilol 3.125 MG TAB PO SCH ×2 (08:54→15:18)
[2019-12-24] MEDS: Furosemide 40 MG TAB PO SCH (08:54)
[2019-12-24] MEDS: Nystatin Powder 15 GM BOT TOP SCH ×2 (08:55→21:04)
[2019-12-24] MEDS: Famotidine 20 MG TAB PO SCH (08:56)
[2019-12-25] MEDS: hydrALAZINE 25 MG TAB PO SCH ×3 (08:28→20:57)
[2019-12-25] MEDS: Famotidine 20 MG TAB PO SCH (08:28)
[2019-12-25] MEDS: Clopidogrel Bisulfate 75 MG TAB PO SCH (08:29)
[2019-12-25] MEDS: Saccharomyces boulardii 250 MG CAP PO SCH ×2 (08:29→20:57)
[2019-12-25] MEDS: Atorvastatin Calcium 40 MG TAB PO SCH (08:29)
[2019-12-25] MEDS: Cholecalciferol 1,000 UNITS (25 MCG) TAB PO SCH (08:30)
[2019-12-25] MEDS: Enoxaparin Sodium 30 MG/0.3 ML SYRINGE SC SCH (08:31)
[2019-12-25] MEDS: Furosemide 40 MG TAB PO SCH (08:31)
[2019-12-25] MEDS: Lisinopril 20 MG TAB PO SCH (08:31)
[2019-12-25] MEDS: Carvedilol 3.125 MG TAB PO SCH ×2 (08:31→16:32)
[2019-12-25] MEDS: Nystatin Powder 15 GM BOT TOP SCH ×2 (08:32→20:58)
[2019-12-26 05:37] LABS: Hemoglobin 8.6 g/dL (12.0-16.0); Platelet Count 175 thou/uL (130-400)
[2019-12-26] MEDS: Famotidine 20 MG TAB PO SCH (08:35)
[2019-12-26] MEDS: hydrALAZINE 25 MG TAB PO SCH ×3 (08:35→20:55)
[2019-12-26] MEDS: Nystatin Powder 15 GM BOT TOP SCH ×2 (08:35→20:56)
[2019-12-26] MEDS: Atorvastatin Calcium 40 MG TAB PO SCH (08:37)
[2019-12-26] MEDS: Enoxaparin Sodium 30 MG/0.3 ML SYRINGE SC SCH (08:37)
[2019-12-26] MEDS: Lisinopril 20 MG TAB PO SCH (08:38)
[2019-12-26] MEDS: Clopidogrel Bisulfate 75 MG TAB PO SCH (08:38)
[2019-12-26] MEDS: Furosemide 40 MG TAB PO SCH (08:39)
[2019-12-26] MEDS: Cholecalciferol 1,000 UNITS (25 MCG) TAB PO SCH (08:39)
[2019-12-26] MEDS: Carvedilol 3.125 MG TAB PO SCH ×2 (08:39→16:43)
[2019-12-26] MEDS: Saccharomyces boulardii 250 MG CAP PO SCH ×2 (08:40→20:55)
[2019-12-26 10:40] VITALS: BMI 28.7
[2019-12-27] MEDS: Cholecalciferol 1,000 UNITS (25 MCG) TAB PO SCH (08:39)
[2019-12-27] MEDS: Enoxaparin Sodium 30 MG/0.3 ML SYRINGE SC SCH (08:39)
[2019-12-27] MEDS: Atorvastatin Calcium 40 MG TAB PO SCH (08:39)
[2019-12-27] MEDS: Famotidine 20 MG TAB PO SCH (08:40)
[2019-12-27] MEDS: Carvedilol 3.125 MG TAB PO SCH ×2 (08:40→16:19)
[2019-12-27] MEDS: Clopidogrel Bisulfate 75 MG TAB PO SCH (08:40)
[2019-12-27] MEDS: hydrALAZINE 25 MG TAB PO SCH ×2 (08:40→16:18)
[2019-12-27] MEDS: Saccharomyces boulardii 250 MG CAP PO SCH (08:40)
[2019-12-27] MEDS: Lisinopril 20 MG TAB PO SCH (08:41)
[2019-12-27] MEDS: Furosemide 40 MG TAB PO SCH (08:41)
[2019-12-27] MEDS: Nystatin Powder 15 GM BOT TOP SCH (08:42)
[2019-12-27 19:22] VITALS: BP 184/86; TEMP 98.4
== END 2019-12-27 19:15 | disposition home health service (06) | DRG 948 ==
LOC: BURMED 19:00
PROVIDERS: ADMIT Family Medicine; ATTEND Family Medicine
DX: R53.81 Other malaise (principal); N18.4 Chronic kidney disease, stage 4 (severe); I13.0 Hypertensive heart and chronic kidney disease with heart failure and stage 1 through stage 4 chronic kidney disease, or unspecified chronic kidney disease; N39.0 Urinary tract infection, site not specified; I50.9 Heart failure, unspecified; Z20.828 Contact with and (suspected) exposure to other viral communicable diseases; E11.22 Type 2 diabetes mellitus with diabetic chronic kidney disease; R33.9 Retention of urine, unspecified; Z79.4 Long term (current) use of insulin
CPT/HCPCS: 36415; 36416; 71045; 80048; 80053; 81003; 81015; 82553; 82565; 83880; 84484; 85014; 85018; 85025; 85049; 87077; 87086; 87186; 87324; 87449; 87635; J1650; Q0162; U0003